=== PATIENT | female | born 1990 | race African-American/Black ===

== ENCOUNTER 2018-01-13 19:00 | Emergency (ER) | payer OTHER | END 2018-01-13 19:46 | disposition home or self-care (01) | LOC: M ED 19:00 | DX: S29.011A Strain of muscle and tendon of front wall of thorax, initial encounter (principal); X58.XXXA Exposure to other specified factors, initial encounter; Y92.89 Other specified places as the place of occurrence of the external cause; K21.9 Gastro-esophageal reflux disease without esophagitis; D64.9 Anemia, unspecified; Z72.0 Tobacco use; J30.2 Other seasonal allergic rhinitis | CPT/HCPCS: 99283 ==

== ENCOUNTER 2018-01-22 12:04 | Emergency (ER) | payer OTHER ==
[2018-01-22 13:32] LABS: BASO % 0.4 % (0.0-1.0); EOS % 0.4 % (0.0-3.0); HEMATOCRIT 36.5 % (36.0-47.0); HEMOGLOBIN 11.8 g/dl (12.0-15.5); IMMATURE GRANULOCYTE % 0.2 % (0-3.0); LYMPH # 1.2 10^3/uL (1.5-6.5); LYMPH % 25.8 % (24.0-44.0); MEAN CORPUSCULAR HEMOGLOBIN 30.3 pg (27.0-33.0); MEAN CORPUSCULAR HGB CONC 32.3 g/dl (32.0-36.5); MEAN CORPUSCULAR VOLUME 93.8 fl (80.0-96.0); MONO # 0.5 10^3/uL (0.0-0.8); NEUTROPHILS # 2.9 10^3/uL (1.8-7.7); NEUTROPHILS % 63.2 % (36.0-66.0); PLATELET COUNT, AUTOMATED 258 10^3/uL (150-450); RED BLOOD COUNT 3.89 10^6/uL (4.00-5.40); RED CELL DISTRIBUTION WIDTH 13.1 % (11.5-14.5); WHITE BLOOD COUNT 4.6 10^3/uL (4.0-10.0)
[2018-01-22 13:38] LABS: KETONE, URINE AUTO RFX NEGATIVE (NEGATIVE); LEUKOCYTE ESTERASE UR AUTO RFX NEGATIVE (NEGATIVE); MUCUS, URINE RFX SMALL (NEGATIVE); NITRITE, URINE AUTO RFX NEGATIVE (NEGATIVE); RBC, URINE AUTO RFX 1 /HPF (0-3); SPECIFIC GRAVITY UR AUTO RFX 1.019 (1.002-1.035); SQUAM EPITHELIAL CELL UR AURFX 1 /HPF (0-6); WBC, URINE AUTO RFX 1 /HPF (0-3)
[2018-01-22] MEDS: NS 1,000 ML IV (13:50)
[2018-01-22 14:26] LABS: ANION GAP 7 MEQ/L (8-16); BLOOD UREA NITROGEN 7 MG/DL (7-18); CALCIUM LEVEL 9.2 MG/DL (8.5-10.1); CARBON DIOXIDE LEVEL 26 MEQ/L (21-32); CHLORIDE LEVEL 106 MEQ/L (98-107); CREATININE FOR GFR 0.81 MG/DL (0.55-1.30); GLOMERULAR FILTRATION RATE > 60.0 (>60); GLUCOSE, FASTING 74 MG/DL (70-100); HCG, SERUM QUANTITATIVE 3332 MIU/ML; POTASSIUM SERUM 3.6 MEQ/L (3.5-5.1); SODIUM LEVEL 139 MEQ/L (136-145)
== END 2018-01-22 16:19 | disposition home or self-care (01) ==
LOC: M ED 12:04
DX: O26.891 Other specified pregnancy related conditions, first trimester (principal); R10.9 Unspecified abdominal pain; Z3A.01 Less than 8 weeks gestation of pregnancy
CPT/HCPCS: 76801

== ENCOUNTER → 2018-01-24 | Outpatient (CLI) | payer OTHER ==
[2018-01-24 14:16] LABS: HCG, SERUM QUANTITATIVE 5409 MIU/ML
== END ==
LOC: M LAB 11:34
DX: R10.9 Unspecified abdominal pain (principal)
CPT/HCPCS: 84702

== ENCOUNTER 2018-03-31 11:09 | Emergency (ER) | payer OTHER ==
[2018-03-31] MEDS: NS 1,000 ML IV (11:40)
[2018-03-31 11:41] LABS: BASO % 0.2 % (0.0-1.0); EOS % 0.5 % (0.0-3.0); HEMATOCRIT 30.4 % (36.0-47.0); IMMATURE GRANULOCYTE % 0.2 % (0-3.0); LYMPH # 1.8 10^3/uL (1.5-6.5); LYMPH % 26.9 % (24.0-44.0); MEAN CORPUSCULAR HEMOGLOBIN 29.9 pg (27.0-33.0); MEAN CORPUSCULAR HGB CONC 32.9 g/dl (32.0-36.5); MEAN CORPUSCULAR VOLUME 90.7 fl (80.0-96.0); MONO # 0.5 10^3/uL (0.0-0.8); MONO % 7.1 % (0.0-5.0); NEUTROPHILS # 4.3 10^3/uL (1.8-7.7); NEUTROPHILS % 65.1 % (36.0-66.0); PLATELET COUNT, AUTOMATED 269 10^3/uL (150-450); RED BLOOD COUNT 3.35 10^6/uL (4.00-5.40); RED CELL DISTRIBUTION WIDTH 12.6 % (11.5-14.5); WHITE BLOOD COUNT 6.6 10^3/uL (4.0-10.0)
[2018-03-31 12:11] LABS: ALBUMIN 2.9 GM/DL (3.2-5.2); ALBUMIN/GLOBULIN RATIO 0.85 (1.00-1.93); ALKALINE PHOSPHATASE 62 U/L (45-117); ALT/SGPT 15 U/L (12-78); AMYLASE 48 U/L (25-115); ANION GAP 9 MEQ/L (8-16); AST/SGOT 10 U/L (7-37); BILIRUBIN,DIRECT < 0.1 MG/DL (0.0-0.2); BILIRUBIN,TOTAL 0.2 MG/DL (0.2-1.0); BLOOD UREA NITROGEN 8 MG/DL (7-18); CALCIUM LEVEL 8.5 MG/DL (8.5-10.1); CARBON DIOXIDE LEVEL 23 MEQ/L (21-32); CHLORIDE LEVEL 107 MEQ/L (98-107); CREATININE FOR GFR 0.71 MG/DL (0.55-1.30); GLOMERULAR FILTRATION RATE > 60.0 (>60); GLUCOSE, FASTING 89 MG/DL (70-100); LIPASE 103 U/L (73-393); POTASSIUM SERUM 3.8 MEQ/L (3.5-5.1); SODIUM LEVEL 139 MEQ/L (136-145); TOTAL PROTEIN 6.3 GM/DL (6.4-8.2)
[2018-03-31 12:57] LABS: KETONE, URINE AUTO RFX NEGATIVE (NEGATIVE); MUCUS, URINE RFX SMALL (NEGATIVE); NITRITE, URINE AUTO RFX NEGATIVE (NEGATIVE); RBC, URINE AUTO RFX 0 /HPF (0-3); SPECIFIC GRAVITY UR AUTO RFX 1.004 (1.002-1.035); SQUAM EPITHELIAL CELL UR AURFX 1 /HPF (0-6)
[2018-03-31 12:58] LABS: LEUKOCYTE ESTERASE UR AUTO RFX 1+ (NEGATIVE); WBC, URINE AUTO RFX 47 /HPF (0-3)
== END 2018-03-31 13:44 | disposition home or self-care (01) ==
LOC: M ED 11:09
DX: O23.42 Unspecified infection of urinary tract in pregnancy, second trimester (principal)
CPT/HCPCS: 76705

== ENCOUNTER 2018-04-23 12:48 | Emergency (ER) | payer OTHER ==
[2018-04-23 14:30] LABS: KETONE, URINE AUTO RFX NEGATIVE (NEGATIVE); LEUKOCYTE ESTERASE UR AUTO RFX NEGATIVE (NEGATIVE); MUCUS, URINE RFX SMALL (NEGATIVE); NITRITE, URINE AUTO RFX NEGATIVE (NEGATIVE); RBC, URINE AUTO RFX 1 /HPF (0-3); SPECIFIC GRAVITY UR AUTO RFX 1.013 (1.002-1.035); SQUAM EPITHELIAL CELL UR AURFX 1 /HPF (0-6); WBC, URINE AUTO RFX 0 /HPF (0-3)
== END 2018-04-23 15:29 | disposition home or self-care (01) ==
LOC: M ED 12:48
DX: O26.892 Other specified pregnancy related conditions, second trimester (principal); O99.612 Diseases of the digestive system complicating pregnancy, second trimester; O99.012 Anemia complicating pregnancy, second trimester; O99.342 Other mental disorders complicating pregnancy, second trimester; O99.512 Diseases of the respiratory system complicating pregnancy, second trimester; Z3A.19 19 weeks gestation of pregnancy; Z79.899 Other long term (current) drug therapy
CPT/HCPCS: 76816

== ENCOUNTER → 2018-04-26 | Outpatient (CLI) | payer OTHER ==
[~2018-04-26] MED LIST: DOXYPOW; FLINCHW5 PO; MACR100C43 PO; NAPR-50 PO; PYRI25TA2 PO; RANI150C PO; RANI1TAB6 PO; UNIS25TA3 PO; prenatal vit
== END ==
LOC: M RAD 10:04
PROVIDERS: ATTEND Obstetrics & Gynecology
DX: Z36.89 Encounter for other specified antenatal screening (principal); Z3A.17 17 weeks gestation of pregnancy

== ENCOUNTER 2018-07-22 14:51 | Outpatient (CLI) | payer OTHER ==
[~2018-07-22] VITALS: Ht 167.6 cm; Wt 134.8 kg
[2018-07-22 15:28] VITALS: BP 119/74
== END 2018-07-22 16:14 | disposition home or self-care (01) ==
LOC: M LDO 14:51
PROVIDERS: ATTEND Obstetrics & Gynecology
DX: O36.8130 Decreased fetal movements, third trimester, not applicable or unspecified (principal); Z3A.30 30 weeks gestation of pregnancy
CPT/HCPCS: 59025; G0378; G0463

== ENCOUNTER 2018-08-04 15:04 | Emergency (ER) | payer OTHER ==
[~2018-08-04] VITALS: Ht 167.6 cm; Wt 134.1 kg
[2018-08-04 15:04] VITALS: BP 108/68
[~2018-08-04 15:04] MED LIST changes: -NAPR-50 PO; +NAPR-837 PO
[2018-08-04 15:27] LABS: BASO % 0.2 % (0.0-1.0); EOS % 0.5 % (0.0-3.0); HEMATOCRIT 30.5 % (36.0-47.0); HEMOGLOBIN 9.8 g/dl (12.0-15.5); LYMPH # 1.5 10^3/uL (1.5-6.5); LYMPH % 18.5 % (24.0-44.0); MEAN CORPUSCULAR HEMOGLOBIN 30.2 pg (27.0-33.0); MEAN CORPUSCULAR HGB CONC 32.1 g/dl (32.0-36.5); MEAN CORPUSCULAR VOLUME 94.1 fl (80.0-96.0); MONO # 0.7 10^3/uL (0.0-0.8); MONO % 8.1 % (0.0-5.0); NEUTROPHILS % 72.1 % (36.0-66.0); PLATELET COUNT, AUTOMATED 238 10^3/uL (150-450); RED BLOOD COUNT 3.24 10^6/uL (4.00-5.40); WHITE BLOOD COUNT 8.3 10^3/uL (4.0-10.0)
[2018-08-04] MEDS ORDERED: NS 1,000 ML IV ONE (15:30)
[2018-08-04 16:00] LABS: ALBUMIN 2.7 GM/DL (3.2-5.2); ALT/SGPT 12 U/L (12-78); BILIRUBIN,DIRECT < 0.1 MG/DL (0.0-0.2); BILIRUBIN,TOTAL 0.3 MG/DL (0.2-1.0); BLOOD UREA NITROGEN 5 MG/DL (7-18); CALCIUM LEVEL 8.3 MG/DL (8.5-10.1); CARBON DIOXIDE LEVEL 25 MEQ/L (21-32); CHLORIDE LEVEL 107 MEQ/L (98-107); CK-MB VALUE MASS < 1.0 NG/ML (<3.6); CPK CREATINE PHOSPHOKINASE 52 U/L (26-192); CREATININE FOR GFR 0.64 MG/DL (0.55-1.30); FREE T4 0.82 NG/DL (0.76-1.46); GLOMERULAR FILTRATION RATE > 60.0 (>60); GLUCOSE, FASTING 74 MG/DL (70-100); LIPASE 108 U/L (73-393); MB/CK RELATIVE INDEX 1.92 (< OR =4); SODIUM LEVEL 140 MEQ/L (136-145); THYROID STIMULATING HORMONE 0.833 uIU/ML (0.358-3.740); TOTAL PROTEIN 6.1 GM/DL (6.4-8.2); TROPONIN I < 0.02 NG/ML (< 0.10)
[2018-08-04] MEDS ORDERED: ISOVUE-370 76% 125ML VIAL (Q9967 PER ML) As Ordered ONE (16:12)
--- NOTE | 2018-08-04 16:35 | REP ---
Clinical: Bilateral pain and swelling . Technique: De Luna scale and color Doppler evaluation using linear high frequency transducer. Findings: Ultrasound examination of the right and left lower extremity deep venous structures from the common femoral vein to the popliteal vein demonstrates normal compressibility flow and wave patterns in response to respiration and augmentation. There is no evidence for deep venous thrombosis. Impression: No evidence for deep venous thrombosis. Electronically Signed by Conrad Pereira MD 08/04/2018 04:27 P
--- NOTE | 2018-08-04 16:53 | REP ---
Clinical: Third trimester with acute chest pain. Technique: Axial contrast enhanced images from the thoracic inlet to the upper abdomen with multiplanar re-formations using pulmonary embolus technique. 100 ml Isovue 370 intravenous contrast material administered without complication. Findings: Satisfactory enhancement of the pulmonary vasculature is achieved and no obvious filling defects are identified to suggest pulmonary embolus. However, very subtle emboli into the right upper lobe cannot definitively be excluded and correlation with physical examination may be warranted. The bilateral lung poe are clear and without consolidation, effusion, or pneumothorax. No adenopathy. Further evaluation of the mediastinum demonstrates normal thoracic aorta and heart/pericardium. Surrounding musculoskeletal structures are intact. Impression: No obvious/definite acute pulmonary embolus. No acute mediastinal or pleuroparenchymal process appreciated. Electronically Signed by Conrad Pereira MD 08/04/2018 04:44 P
--- NOTE | 2018-08-04 19:18 | ECGEPIP ---
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
== END 2018-08-04 17:49 | disposition home or self-care (01) ==
LOC: M ED 15:04
DX: O99.89 Other specified diseases and conditions complicating pregnancy, childbirth and the puerperium (principal); R07.9 Chest pain, unspecified; R94.31 Abnormal electrocardiogram [ECG] [EKG]; Z3A.32 32 weeks gestation of pregnancy; Z87.891 Personal history of nicotine dependence; Z91.048 Other nonmedicinal substance allergy status; Z79.899 Other long term (current) drug therapy
CPT/HCPCS: 71275; 80048; 80076; 82550; 82553; 83690; 84439; 84443; 84484; 85025; 93005; 93041; 93970; 94760; 96360; 99284; Q9967

== ENCOUNTER 2018-09-09 00:31 | Outpatient (CLI) | payer OTHER ==
[~2018-09-09] VITALS: Ht 167.6 cm; Wt 137.0 kg
[2018-09-09 00:46] VITALS: BP 115/58
--- NOTE | 2018-09-09 01:31 | IPNPDOC ---
Text Note Date of Service The patient was seen on 09/09/18. NOTE 28 yo at 37+6 weeks gestation presented to L&D with the complaint of intermittent cramping and decreased movement. She reports feeling movement but not as much as usual. Cramping is not severe. She denies any leakage of fluid or vaginal bleeding. She is scheduled for a repeat c section with BTL on 18Sep2018 for a history of prior c section and breech presentation. 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 Patient felt movement in triage and was reassured. NST reactive. Cervix closed and she is not in labor. Discharged home with return precautions. Next appointment scheduled for Sunday. All patient questions answered. Jas Maria DO A-FIB/CHADSVASC A-FIB History Current/History of A-Fib/PAF?: No VS,Fishbone, I+O VS, Fishbone, I+O Vital Signs Date Time Temp Pulse Resp B/P (MAP) Pulse Ox O2 Delivery O2 Flow Rate FiO2 09/09/18 00:46 98.0 107 18 115/58 (77) JAS MARIA DO September 09, 2018 01:31
[2018-09-11] MEDS ORDERED: SENN1TAB8 PO (09:31)
[2018-09-11] MEDS ORDERED: FERR325T18 PO (09:31)
== END 2018-09-09 01:30 | disposition home or self-care (01) ==
LOC: M LDO 00:31
PROVIDERS: ATTEND Obstetrics & Gynecology
DX: O36.8130 Decreased fetal movements, third trimester, not applicable or unspecified (principal); O26.893 Other specified pregnancy related conditions, third trimester; R10.30 Lower abdominal pain, unspecified; O47.1 False labor at or after 37 completed weeks of gestation; Z3A.37 37 weeks gestation of pregnancy
CPT/HCPCS: 59025; G0378; G0463

== ENCOUNTER 2018-09-18 05:04 | Inpatient (IN) | payer OTHER ==
[~2018-09-18] VITALS: Ht 167.6 cm; Wt 139.1 kg
[2018-09-18] VITALS (7 sets, daily range): BP systolic 106–131; BP diastolic 53–80
[~2018-09-18 05:04] MED LIST changes: +FERR325T18 PO; +SENN1TAB8 PO
[2018-09-18 05:32] LABS: HEMATOCRIT 33.4 % (36.0-47.0); HEMOGLOBIN 10.9 g/dl (12.0-15.5); MEAN CORPUSCULAR HEMOGLOBIN 31.1 pg (27.0-33.0); MEAN CORPUSCULAR HGB CONC 32.6 g/dl (32.0-36.5); MEAN CORPUSCULAR VOLUME 95.4 fl (80.0-96.0); PLATELET COUNT, AUTOMATED 235 10^3/uL (150-450); WHITE BLOOD COUNT 8.8 10^3/uL (4.0-10.0)
[2018-09-18] MEDS ORDERED: LACTATED RINGER'S 1000 ML IV STA (05:52)
[2018-09-18] MEDS ORDERED: BICITRA 30ML SOLN UDC PO ONE (06:00)
[2018-09-18] MEDS ORDERED: OXYTOCIN INJ 10 UNITS/ML VIAL (J2590) As Ordered ONE ×2 (07:11→08:34)
[2018-09-18] MEDS ORDERED: BUPIVACAINE/DEXTROSE 0.75% 2 ML AMP As Ordered ONE (07:12)
[2018-09-18] MEDS ORDERED: dexameTHASONE 4 MG/ML 1ML VIAL (J1100) As Ordered ONE (07:13)
[2018-09-18] MEDS ORDERED: ONDANSETRON 4MG/2ML VIAL (J2405) As Ordered ONE (07:13)
[2018-09-18] MEDS: LR 1,000 ML IV SCH ×2 (07:15→13:52)
[2018-09-18] MEDS ORDERED: MORPHINE PRES-FREE INJ 10 MG/10 ML VIAL (J2274) As Ordered ONE (07:16)
[2018-09-18] MEDS ORDERED: LIDOCAINE 1% MDV INJ 50 ML VIAL As Ordered ONE (07:55)
[2018-09-18] MEDS ORDERED: LIDOCAINE 1% MDV INJ 50 ML VIAL SC ONE (08:00)
[2018-09-18] MEDS ORDERED: NALBUPHINE HCL 10 MG/ML AMP (J2300) IV PRN ×2 (08:00→10:30)
[2018-09-18] MEDS ORDERED: METOCLOPRAMIDE INJ 10MG/2ML VIAL (J2765) IV PRN (08:00)
[2018-09-18] MEDS ORDERED: ONDANSETRON 4MG/2ML VIAL (J2405) IV PRN ×3 (08:00→10:30)
[2018-09-18] MEDS ORDERED: diphenhydrAMINE INJ 50MG/ML VIAL (J1200) IV PRN (08:00)
[2018-09-18] MEDS ORDERED: NALOXONE INJ 0.4 MG/1 ML VIAL (J2310) IV PRN ×2 (08:00)
[2018-09-18] MEDS ORDERED: PHENYLephrine HCL 500 MCG/5 ML (100MCG/ML) SYRINGE (J2370) As Ordered ONE (08:20)
[2018-09-18] MEDS: DOCUSATE SODIUM 100 MG CAP PO SCH ×2 (09:00→20:59)
[2018-09-18] MEDS: PRENATAL VITAMINS CHEWABLE TABLET PO SCH (09:00)
[2018-09-18 09:04] LABS: CORD GAS ABE A -1.9; CORD GAS HCO3 A 25.2 MEQ/L; CORD GAS O2 SAT A 71.9 %; CORD GAS PCO2 A 51.7 mmHg; CORD GAS PH A 7.305 UNITS; CORD GAS PO2 A 33.1 mmHg; CORD GAS SBC A 22.3 MEQ/L; CORD GAS TCO2 A 26.7 MEQ/L
[2018-09-18 09:05] LABS: CORD GAS ABE V -1.3; CORD GAS HCO3 V 25.3 MEQ/L; CORD GAS O2 SAT V 60.9 %; CORD GAS PCO2 V 49.5 mmHg; CORD GAS PH V 7.326 UNITS; CORD GAS PO2 V 26.2 mmHg; CORD GAS SBC V 22.5 MEQ/L; CORD GAS TCO2 V 26.8 MEQ/L
[2018-09-18] MEDS ORDERED: OXYTOCIN DRIP 30 UNITS in APPROPRIATE DILUENT 1 EA IV SCH (10:00)
[2018-09-18] MEDS ORDERED: MEASLES,MUMPS,RUBELLA VACCINE INJ (MMR-II) (90707) SC SCH (10:00)
[2018-09-18] MEDS ORDERED: PERCOCET 5MG/325MG TAB PO PRN (10:00)
[2018-09-18] MEDS ORDERED: LR 1,000 ML IV SCH (10:00)
[2018-09-18] MEDS ORDERED: RHOGAM 300 MCG (1500 IU) INJ (J2790) IM SCH (10:00)
[2018-09-18] MEDS ORDERED: METHYLERGONOVINE MALEATE 0.2 MG/ML VIAL (J2210) As Ordered ONE (10:10)
[2018-09-18] MEDS ORDERED: OXYTOCIN 30 UNITS IN 0.9% NaCl 500ML IV BAG (J2590) As Ordered ONE (10:16)
[2018-09-18] MEDS ORDERED: KETOROLAC 30 MG/ML VIAL (J1885) IV PRN (10:30)
[2018-09-18] MEDS ORDERED: METHYLERGONOVINE MALEATE 0.2 MG/ML VIAL (J2210) IM ONE (10:30)
[2018-09-18] MEDS ORDERED: fentaNYL 100 MCG/2 ML INJECTION (J3010) IV PRN (10:30)
[2018-09-18] MEDS ORDERED: KETOROLAC 30 MG/ML VIAL (J1885) As Ordered ONE (10:53)
[2018-09-18] MEDS ORDERED: KETOROLAC 30 MG/ML VIAL (J1885) IV SCH (11:00)
--- NOTE | 2018-09-18 13:21 | RO ---
DATE OF OPERATION: 09/18/2018 CLINICAL SERVICE: Obstetrics INDICATIONS FOR OPERATION: Abraham is a 28-year-old 2, now para 2-0-0-2, who had a prior section and desired a repeat section for that indication, but was also known to be persistently breech toward the end of her as well. She also has satisfied parity and requested a sterilization procedure. PREOPERATIVE DIAGNOSES: 1. Bess intrauterine with history of prior section. 2. Persistent breech presentation. 3. Satisfied parity. 4. Morbid obesity. POSTOPERATIVE DIAGNOSES: 1. Bess intrauterine with history of prior section. 2. Persistent breech presentation. 3. Satisfied parity. 4. Morbid obesity. OPERATION PERFORMED: 1. Repeat low transverse section. 2. [place] bilateral tubal ligation. SURGEON: Dr. Zakiya Mcclelland MD TEST EVALUATOR: Dr. Ever Mcintyre MD ANESTHESIA: Spinal MATERIAL FORWARDED TO THE LAB FOR EXAMINATION: Cord gases, pH arterial 7.305, base excess negative 1.9, pH venous 7.326, base excess negative 1.3 and portions of bilateral fallopian tubes were sent to pathology. DESCRIPTION OF FINDINGS: Female infant in footling breech presentation. scores of 8 and 8. Weight 4350 grams or 9 pounds 9 ounces. Normal appearing uterus, ovaries and fallopian tubes. There was a segment of omentum that was adhered to the anterior portion of the uterus which was taken down with Bovie cautery. INFECTION CLASSIFICATION: 2 ESTIMATED BLOOD LOSS: 500 mL. FLUIDS: 1700 mL of Lactated Ringer's. URINE OUTPUT: 75 mL of yellow clear urine. DESCRIPTION OF OPERATION: The patient was taken to the operating room. She had a reactive NST prior. Spinal anesthesia was administered. Arrington catheter and bilateral sequential compression devices were placed. She received 2 grams of Ancef IV prophylactically. She was prepped and draped in a normal sterile fashion in the dorsal supine position with a left lateral tilt. A time out was performed to confirm patient name, date of , procedure and indication. Surgical team, nursing team and anesthesia were all in agreement. Spinal anesthesia was found to be adequate using an Allis clamp. A Pfannenstiel skin incision was made with a scalpel and carried through to the underlying layer of fascia using Bovie cautery. Fascia was incised in the midline and the incision was extended laterally with Sparrow scissors. Superior and inferior aspects of fascial incision were grasped with Jamie clamps, elevated and underlying rectus muscles were dissected off bluntly and sharply. Peritoneum was entered digitally and the rectus muscles were in the midline. Peritoneal incision was extended superiorly and inferiorly with good visualization of the bladder. Bladder blade was reinserted and the vesicouterine peritoneum was identified, grasped with pickups and entered sharply with Metzenbaum scissors. The incision was then extended laterally and the bladder flap was created digitally. Bladder blade was reinserted and the lower uterine segment was scored in a transverse fashion with a scalpel. The uterus was entered bluntly and the incision was extended with traction with clear amniotic fluid noted. Bladder blade was removed and the first palpable part was a leg. The leg was brought up through the incision and the was turned inside the uterus such that the other leg could be delivered. The infant's pelvis was then elevated to the level of the incision. The infant was brought up through the incision up to the level of the shoulders and the right followed by the left arm were delivered using Lovset's maneuver. The [place] maneuver was then employed and the head delivered then atraumatically, but there were two nuchal cords present, which were immediately reduced upon delivery of the head. Nose and mouth were suctioned with bulb suction. Cord was clamped times two and cut. The was handed off to the awaiting nursing team. Cord gases were obtained and values are as noted above. Placenta was then removed with traction on the umbilical cord and uterine massage. The uterus was exteriorized and cleared of all clot and debris. Uterine incision was repaired with #0 Vicryl suture in a running locking fashion and a second layer of #0 Monocryl suture was used to close the hysterotomy incision in an imbricating fashion. Uterine incision was inspected and hemostasis was noted. We did use cautery to remove an adhesion of the omentum to the anterior uterine wall and there was hemostasis noted. At that time the right and left fallopian tubes were visualized without abnormalities. A [place] tubal ligation was performed on the right followed by left fallopian tubes using #0 plain gut suture. The transected portions of the fallopian tubes were sent to pathology. There was hemostasis noted at both sites. The posterior cul-de-sac was irrigated gently and the uterus was then returned the abdomen. Gutters were cleared of all clot and irrigated with hemostasis noted. We reinspected the uterine incision and noted hemostasis, but she had very slight oozing throughout the procedure, so we did apply some Javier to the hysterotomy area and the bladder flap. The peritoneum was then closed using a #3-0 Vicryl suture in a running fashion. Rectus muscles were reapproximated with figure-of-8 stitch using #0 Vicryl suture. Fascia was reapproximated using #0 Vicryl suture in a running fashion. Subcutaneous tissue was copiously irrigated. Yanira's fascia was reapproximated using #3-0 Vicryl suture in a running fashion and then skin edges were reapproximated using three inverted interrupted stitches using #3-0 Vicryl suture followed by a running subcuticular stitch using #4-0 Monocryl suture. The incision was cleaned using wet lap, dried with a dry lap. Steri-Strips were applied in the usual fashion. Two strips of Telfa were layered on top of the Steri-Strips followed by a dry sterile towel. Sterile towel was removed and a pressure dressing was applied over the entire surgical incision. The vagina was cleared of all blood clot without active bleeding noted. Fundus was firm at U -1 cm. All counts were correct times two. I requested anesthesia give a dose of 0.2 mg IM Methergine at the end of the procedure to give continued prophylaxis against bleeding. The procedure was without complications and the patient tolerated the procedure well. She was taken to the recovery room on labor and delivery in stable condition. ARTEM
[2018-09-18] MEDS: KETOROLAC 30 MG/ML VIAL (J1885) IV SCH ×2 (18:06→22:51)
[2018-09-18] MEDS: ENOXAPARIN 40 MG/0.4 ML SYRINGE (J1650) SC SCH (21:00)
[2018-09-19] VITALS (7 sets, daily range): BP systolic 91–133; BP diastolic 53–74
[2018-09-19] MEDS: KETOROLAC 30 MG/ML VIAL (J1885) IV SCH (05:00)
[2018-09-19] MEDS: PRENATAL VITAMINS CHEWABLE TABLET PO SCH (07:50)
[2018-09-19] MEDS: IBUPROFEN 800 MG TAB PO SCH ×3 (07:50→23:29)
[2018-09-19] MEDS: DOCUSATE SODIUM 100 MG CAP PO SCH ×2 (07:50→21:46)
[2018-09-19 08:02] LABS: HEMOGLOBIN 9.9 g/dl (12.0-15.5); MEAN CORPUSCULAR HEMOGLOBIN 30.9 pg (27.0-33.0); MEAN CORPUSCULAR HGB CONC 31.9 g/dl (32.0-36.5); MEAN CORPUSCULAR VOLUME 96.9 fl (80.0-96.0); PLATELET COUNT, AUTOMATED 216 10^3/uL (150-450); WHITE BLOOD COUNT 8.8 10^3/uL (4.0-10.0)
--- NOTE | 2018-09-19 16:52 | IPNPDOC ---
Progress Note Date of Service: September 19, 2018 Day#: 1 Progress Note PPD 1/post-op day 1 SUBJECT: Abraham is a 28yo [id number] s/p uncomplicated scheduled RLTCS with BTL on 09/18 for history of prior and persistent breech presentation with satisfied parity, doing well day # 1. She has been ambulating, voiding spontaneously without issue and tolerating regular diet. Breast feeding without issue. Reports lochia is minimal. She is passing flatus. No lightheadedness/dizziness. No f/c/n/v/SOB/CP. OBJECTIVE: VITAL SIGNS: Within normal limits, afebrile. Alert and oriented times three. Abdomen: Fundus firm at U-2. Soft, appropriately tender to palpation. Bandage removed. Pfannensteil incision has steri strips overlying, no erythema/induration/drainage. Extremities: trace edema of BLE Labs: pre-op H/H: 10.9/33.4 post-op H/H: 9.9/31 ASSESSMENT: Abraham is a 28yo [id number] s/p uncomplicated scheduled RLTCS with BTL on 09/18 for history of prior and persistent breech presentation with satisfied parity, doing well day # 1. Vitals within normal limits, afebrile, hemodynamically stable with no evidence of infection. PLAN: 1. routine /post-op care 2. percocet and Motrin for pain. 3. Encourage breast feeding and ambulation and use of IS 4. Regular diet 5. Possible discharge home tomorrow if meeting all criteria Dr. Zakiya Mcclelland MD VS, I&O, 24H, [facility] Vital Signs/I&O Vital Signs Date Time Temp Pulse Resp B/P (MAP) Pulse Ox O2 Delivery O2 Flow Rate FiO2 09/19/18 14:00 98.0 110 19 119/74 (89) 98 I&O- Last 24 Hours up to 6 AM 09/19/18 05:59 Intake Total 2220 ml Output Total 1975 ml Balance 245 ml Laboratory Data 24H LABS Laboratory Tests 2 09/19/18 07:43: Nucleated Red Blood Cells % (auto) 0.0 CBC/BMP Laboratory Tests 09/19/18 07:43 Red Blood Count 3.20 L, Mean Corpuscular Volume 96.9 H, Mean Corpuscular Hemoglobin 30.9, Mean Corpuscular Hemoglobin Concent 31.9 L, Red Cell Distribution Width 13.4 Zakiya Mcclelland MD September 19, 2018 16:52
[2018-09-19] MEDS: PERCOCET 5MG/325MG TAB PO PRN (18:53)
[2018-09-19] MEDS: ENOXAPARIN 40 MG/0.4 ML SYRINGE (J1650) SC SCH (21:46)
[2018-09-20 02:00] VITALS: BP 111/56
[2018-09-20 06:00] VITALS: BP 109/53
[2018-09-20] MEDS: IBUPROFEN 800 MG TAB PO SCH (07:58)
[2018-09-20] MEDS: DOCUSATE SODIUM 100 MG CAP PO SCH (08:00)
[2018-09-20] MEDS: PRENATAL VITAMINS CHEWABLE TABLET PO SCH (08:00)
--- NOTE | 2018-09-20 08:32 | IPNPDOC ---
Progress Note Date of Service: September 20, 2018 Day#: 2 Progress Note PPD 2/post-op day 2 SUBJECT: Abraham is a 28yo [id number] s/p uncomplicated scheduled RLTCS with BTL on 09/18 for history of prior and persistent breech presentation with satisfied parity, doing well day # 2. She has been ambulating, voiding spontaneously without issue and tolerating regular diet. Breast feeding without issue. Reports lochia is minimal. She is passing flatus. No lightheadedness/dizziness. No f/c/n/v/SOB/CP. OBJECTIVE: VITAL SIGNS: Within normal limits, afebrile. Alert and oriented times three. Abdomen: Fundus firm at U-2. Soft, appropriately tender to palpation. Pfannensteil incision has steri strips overlying, no erythema/induration/drainage. Area is dry. Extremities: trace edema of BLE Labs: pre-op H/H: 10.9/33.4 post-op H/H: 9.9/31 ASSESSMENT: Abraham is a 28yo [id number] s/p uncomplicated scheduled RLTCS with BTL on 09/18 for history of prior and persistent breech presentation with satisfied parity, doing well day # 2. Vitals within normal limits, afebrile, hemodynamically stable with no evidence of infection. PLAN: 1. discharge home today 2. 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 discussed return precautions at length: fevers/chills, increasing abdominal pain, evidence of wound infection such as drainage/redness, foul smelling discharge, breast redness/pain 4. next visit scheduled in [address] Mcclelland 5. vaginal rest 6 weeks and no heavy lifting Dr. Zakiya Mcclelland MD VS, I&O, 24H, Fishbone Vital Signs/I&O Vital Signs Date Time Temp Pulse Resp B/P (MAP) Pulse Ox O2 Delivery O2 Flow Rate FiO2 09/20/18 06:00 97.3 80 16 109/53 (71) 99 I&O- Last 24 Hours up to 6 AM 09/20/18 06:00 Output Total 1000 ml Balance -1000 ml Zakiya Mcclelland MD September 20, 2018 08:32
--- NOTE | 2018-09-20 08:42 | DS.PDOC ---
Discharge Summary General Date of Admission September 18, 2018 at 05:04 Date of Discharge September 20, 2018 Attending Physician: Zakiya Mcclelland MD Discharge Summary PROCEDURES PERFORMED DURING STAY: RLTCS with BTL ADMITTING DIAGNOSES: 1. history of prior , term in breech presentation 2. satisfied parity DISCHARGE DIAGNOSES: 1. history of prior , term in breech presentation 2. satisfied parity COMPLICATIONS/CHIEF COMPLAINT: History Of Prior Section. HISTORY OF PRESENT ILLNESS/HOSPITAL COURSE: Abraham is a 28yo [id number] s/p uncomplicated scheduled RLTCS with BTL on 09/18 for history of prior and persistent breech presentation with satisfied parity, doing well day # 2. She had a benign post-op course and at time of discharge, vitals were within normal limits, afebrile, hemodynamically stable with no evidence of infection. DISCHARGE MEDICATIONS: Please see below. ALLERGIES: Please see below. PHYSICAL EXAMINATION ON DISCHARGE: VITAL SIGNS: Within normal limits, afebrile. Alert and oriented times three. Abdomen: Fundus firm at U-2. Soft, appropriately tender to palpation. Pfannensteil incision has steri strips overlying, no erythema/induration/drainage. Area is dry. Extremities: trace edema of BLE LABORATORY DATA: Please see below. pre-op H/H: 10.9/33.4 post-op H/H: 9./ DIET: regular DISPOSITION: home DISCHARGE PLAN/INSTRUCTIONS: 1. discharge home today 2. 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 discussed return precautions at length: fevers/chills, increasing abdominal pain, evidence of wound infection such as drainage/redness, foul smelling discharge, breast redness/pain 4. next visit scheduled in [address] Mcclelland 5. vaginal rest 6 weeks and no heavy lifting DISCHARGE CONDITION: Stable TIME SPENT ON DISCHARGE: Greater than [address] Zakiya Mcclelland MD Vital Signs/I&Os Vital Signs Date Time Temp Pulse Resp B/P (MAP) Pulse Ox O2 Delivery O2 Flow Rate FiO2 09/20/18 06:00 97.3 80 16 109/53 (71) 99 I&O- Last 24 Hours up to 6 AM 09/20/18 06:00 Output Total 1000 ml Balance -1000 ml Discharge Medications Scheduled Ferrous Sulfate (Ferrous Sulfate) 325 Mg Tablet, 325 MG PO DAILY, (Reported) Pedi Mv No.79/Ferrous Fumarate (Flintstones with Iron Tab Chew) 1 Chw Chw, 2 CHW PO DAILY, (Reported) Sennosides (Senna) 8.6 Mg Tablet, 8.6 MG PO DAILY, (Reported) Allergies Coded Allergies: SEASONAL ALLERGIES (Verified Allergy, Unknown, 01/13/18) Zakiya Mcclelland MD September 20, 2018 08:42
[2018-09-20] MEDS ORDERED: IBUP80TA PO (08:45)
[2018-09-20] MEDS ORDERED: COLA100C5 PO (08:45)
[2018-09-20] MEDS ORDERED: PERCOCET PO (08:45)
[2018-09-20] MEDS: PERCOCET 5MG/325MG TAB PO PRN (10:21)
== END 2018-09-20 12:40 | disposition home or self-care (01) | DRG 785 ==
LOC: M LDI 05:04 → M OBS 11:30
PROVIDERS: ADMIT Obstetrics & Gynecology; ATTEND Obstetrics & Gynecology
PROC: 0UB70ZZ Excision of Bilateral Fallopian Tubes, Open Approach (ICD-10-PCS; 2018-09-18)
PROC: 10D00Z1 Extraction of Products of Conception, Low, Open Approach (ICD-10-PCS; principal; 2018-09-18 07:30)
DX: O34.211 Maternal care for low transverse scar from previous cesarean delivery (principal); Z37.0 Single live birth; Z3A.39 39 weeks gestation of pregnancy; Z30.2 Encounter for sterilization; O32.1XX0 Maternal care for breech presentation, not applicable or unspecified; E66.01 Morbid (severe) obesity due to excess calories; O99.214 Obesity complicating childbirth

== ENCOUNTER → 2018-12-16 | Outpatient (CLI) | payer OTHER ==
[~2018-12-16] MED LIST changes: +COLA100C5 PO; +IBUP80TA PO; +PERCOCET PO; +RANI-397 PO; -RANI1TAB6 PO
[2018-12-16 15:32] LABS: BASO % 0.3 % (0.0-1.0); EOS % 0.6 % (0.0-3.0); HEMATOCRIT 34.1 % (36.0-47.0); HEMOGLOBIN 10.9 g/dl (12.0-15.5); LYMPH # 1.7 10^3/uL (1.5-6.5); LYMPH % 27.1 % (24.0-44.0); MEAN CORPUSCULAR HEMOGLOBIN 30.4 pg (27.0-33.0); MEAN CORPUSCULAR VOLUME 95.3 fl (80.0-96.0); MONO # 0.5 10^3/uL (0.0-0.8); MONO % 7.4 % (0.0-5.0); NEUTROPHILS # 4.1 10^3/uL (1.8-7.7); NEUTROPHILS % 64.4 % (36.0-66.0); PLATELET COUNT, AUTOMATED 286 10^3/uL (150-450); RED BLOOD COUNT 3.58 10^6/uL (4.00-5.40); WHITE BLOOD COUNT 6.4 10^3/uL (4.0-10.0)
[2018-12-16 16:01] LABS: BLOOD UREA NITROGEN 11 MG/DL (7-18); CREATININE FOR GFR 0.87 MG/DL (0.55-1.30); FERRITIN 42 NG/ML (8-252); GLOMERULAR FILTRATION RATE > 60.0 (>60); IRON (FE) 50 UG/DL (50-170); PERCENT SATURATION 15.5 % (13.2-45.0); TOTAL IRON BINDING CAPACITY 323 UG/DL (250-450)
[2018-12-16 16:11] LABS: FOLATE > 24.0 NG/ML; VITAMIN B12 LEVEL 377 PG/ML
== END ==
LOC: M LAB 15:08
PROVIDERS: ATTEND Internal Medicine Gastroenterology
DX: R13.10 Dysphagia, unspecified (principal)

== ENCOUNTER 2019-01-17 09:37 | Day surgery (SDC) | payer OTHER ==
[~2019-01-17] VITALS: Ht 167.6 cm; Wt 130.6 kg
[~2019-01-17 09:37] MED LIST changes: +NS 1,000 ML IV ONE; +RANI-356 PO; -RANI-397 PO
[2019-01-17] MEDS ORDERED: PROPOFOL 200 MG/20 ML VIAL As Ordered ONE ×2 (11:29→12:34)
[2019-01-17] MEDS ORDERED: LIDOCAINE 2% INJ 100 MG/5 ML SDV (FOR ANES.) As Ordered ONE ×2 (11:29→12:34)
--- NOTE | 2019-01-17 13:28 | ROOR ---
Patient Name: Abraham Meredith Procedure Date: 01/17/2019 11:59 AM Date of : 1990 Age: 28 Room: [facility] Gender: Female Note Status: Finalized Procedure: Upper GI endoscopy Indications: Acute post hemorrhagic anemia, Dysphagia, Suspected gastro-esophageal reflux disease Providers: Juan Pablo Tejada MD Referring MD: RADHA GARCIA MD Requesting Provider: Medicines: Monitored Anesthesia Care Complications: No immediate complications. Procedure: Pre-Anesthesia Assessment: - Prior to the procedure, a History and Physical was performed, and patient medications and allergies were reviewed. The patient is competent. The risks and benefits of the procedure and the sedation options and risks were discussed with the patient. All questions were answered and informed consent was obtained. Patient identification and proposed procedure were verified by the physician, the nurse and the anesthesiologist in the procedure room. Mental Status Examination: alert and oriented. Airway Examination: normal oropharyngeal airway and neck mobility. Respiratory Examination: clear to auscultation. CV Examination: normal. Prophylactic Antibiotics: The patient does not require prophylactic antibiotics. Prior Anticoagulants: The patient has taken no previous anticoagulant or antiplatelet agents. ASA Grade Assessment: III - A patient with severe systemic disease. After reviewing the risks and benefits, the patient was deemed in satisfactory condition to undergo the procedure. The anesthesia plan was to use monitored anesthesia care (MAC). Immediately prior to administration of medications, the patient was re-assessed for adequacy to receive sedatives. The heart rate, respiratory rate, oxygen saturations, blood pressure, adequacy of pulmonary ventilation, and response to care were monitored throughout the procedure. The physical status of the patient was re-assessed after the procedure. The Endoscope was introduced through the mouth, and advanced to the second part of duodenum. The upper GI endoscopy was accomplished without difficulty. The patient tolerated the procedure well. Findings: No gross lesions were noted in the entire esophagus. Biopsies were obtained from the proximal and distal esophagus with cold forceps for histology of suspected eosinophilic esophagitis. Verification of patient identification for the specimen was done by the physician and nurse. The Z-line was regular and was found in the distal esophagus. Scattered mild inflammation characterized by erythema and granularity was found in the gastric antrum. Biopsies were taken with a cold forceps for Helicobacter pylori testing. The duodenal bulb and second portion of the duodenum were normal. Biopsies for histology were taken with a cold forceps for evaluation of celiac disease. Impression: - No gross lesions in esophagus. Biopsied. - Z-line regular, in the distal esophagus. - Gastritis. Biopsied. - Normal duodenal bulb and second portion of the duodenum. Biopsied. Recommendation: - Patient has a contact number available for emergencies. The signs and symptoms of potential delayed complications were discussed with the patient. Return to normal activities tomorrow. Written discharge instructions were provided to the patient. - Resume previous diet. - Continue present medications. - Await pathology results. - Recommend acid suppression medication for 6 weeks. - Follow an antireflux regimen. - Telephone GI clinic for pathology results in 2 weeks. - Return to primary care physician. Juan Pablo Tejada MD Juan Pablo Tejada MD 01/17/2019 1:28:19 PM Electronically signed by Juan Pablo Tejada MD Number of Addenda: 0 Note Initiated On: 01/17/2019 11:59 AM Estimated Blood Loss: Estimated blood loss was minimal.
[2019-01-17 13:30] VITALS: BP 123/85
--- NOTE | 2019-01-17 13:35 | ROOR ---
Patient Name: Abraham Meredith Procedure Date: 01/17/2019 12:02 PM Date of : 1990 Age: 28 Room: [facility] Gender: Female Note Status: Finalized Procedure: Colonoscopy Indications: Iron deficiency anemia, Change in bowel habits, Constipation Providers: Juan Pablo Tejada MD Referring MD: RADHA GARCIA MD Requesting Provider: Medicines: Monitored Anesthesia Care Complications: No immediate complications. Procedure: Pre-Anesthesia Assessment: - Prior to the procedure, a History and Physical was performed, and patient medications and allergies were reviewed. The patient is competent. The risks and benefits of the procedure and the sedation options and risks were discussed with the patient. All questions were answered and informed consent was obtained. Patient identification and proposed procedure were verified by the physician, the nurse and the anesthesiologist in the procedure room. Mental Status Examination: alert and oriented. Airway Examination: normal oropharyngeal airway and neck mobility. Respiratory Examination: clear to auscultation. CV Examination: normal. Prophylactic Antibiotics: The patient does not require prophylactic antibiotics. Prior Anticoagulants: The patient has taken no previous anticoagulant or antiplatelet agents. ASA Grade Assessment: III - A patient with severe systemic disease. After reviewing the risks and benefits, the patient was deemed in satisfactory condition to undergo the procedure. The anesthesia plan was to use monitored anesthesia care (MAC). Immediately prior to administration of medications, the patient was re-assessed for adequacy to receive sedatives. The heart rate, respiratory rate, oxygen saturations, blood pressure, adequacy of pulmonary ventilation, and response to care were monitored throughout the procedure. The physical status of the patient was re-assessed after the procedure. The Colonoscope was introduced through the anus and advanced to the terminal ileum, with identification of the appendiceal orifice and IC valve. The colonoscopy was performed without difficulty. The patient tolerated the procedure well. The quality of the bowel preparation was good. The terminal ileum, ileocecal valve, appendiceal orifice, and rectum were photographed. Scope insertion time was 3 minutes. Scope withdrawal time was 9 minutes. The total duration of the procedure was 12 minutes. Findings: The perianal and digital rectal examinations were normal. The terminal ileum appeared normal. Two sessile polyps were found in the recto-sigmoid colon. The polyps were 3 to 4 mm in size. These polyps were removed with a cold biopsy forceps. Resection and retrieval were complete. Verification of patient identification for the specimen was done by the physician and nurse using the patient's name, date and medical record number. Estimated blood loss was minimal. Non-bleeding external and internal hemorrhoids were found during retroflexion. The hemorrhoids were medium-sized. Impression: - The examined portion of the ileum was normal. - Two 3 to 4 mm polyps at the recto-sigmoid colon, removed with a cold biopsy forceps. Resected and retrieved. - Non-bleeding external and internal hemorrhoids. Recommendation: - Patient has a contact number available for emergencies. The signs and symptoms of potential delayed complications were discussed with the patient. Return to normal activities tomorrow. Written discharge instructions were provided to the patient. - High fiber diet. - Continue present medications. - Await pathology results. - Repeat colonoscopy at age 41 due to family h/o Colon cancer and for surveillance based on pathology results. - Telephone GI clinic for pathology results in 2 weeks. - Return to primary care physician. Juan Pablo Tejada MD Juan Pablo Tejaad MD 01/17/2019 1:34:35 PM Electronically signed by Juan Pablo Tejada MD Number of Addenda: 0 Note Initiated On: 01/17/2019 12:02 PM Estimated Blood Loss: Estimated blood loss was minimal.
== END 2019-01-17 13:47 | disposition home or self-care (01) ==
LOC: M OPP 09:37
PROVIDERS: ATTEND Internal Medicine Gastroenterology
DX: K64.8 Other hemorrhoids (principal); K63.5 Polyp of colon; D50.9 Iron deficiency anemia, unspecified; K59.00 Constipation, unspecified; R13.10 Dysphagia, unspecified; K29.70 Gastritis, unspecified, without bleeding; F17.210 Nicotine dependence, cigarettes, uncomplicated